=== PATIENT | female | born 1995 | race Caucasian/White ===

== ENCOUNTER 2018-06-25 12:31 | Day surgery (SDC) | payer OTHER ==
[2018-06-25 13:05] LABS: BASOPHILS % (AUTO) 0.3 %; EOSINOPHILS % (AUTO) 0.3 %; HGB - HEMOGLOBIN 15.8 g/dL (12.0-16.0); LYMPHOCYTES # (AUTO) 1.4 10^3/uL (1.5-3.5); LYMPHOCYTES % (AUTO) 11.7 %; MEAN CORPUSCULAR HEMOGLOBIN 31.1 pg (27.0-31.0); MEAN CORPUSCULAR HGB CONC 34.7 g/dL (32.0-36.0); MEAN CORPUSCULAR VOLUME 89.5 fL (81.0-99.0); MEAN PLATELET VOLUME 7.4 fL (7.9-10.8); MONOCYTES # (AUTO) 0.5 10^3/uL (0.0-1.0); MONOCYTES % (AUTO) 3.9 %; NEUTROPHILS # (AUTO) 10.4 10^3/uL (1.5-6.6); NEUTROPHILS % (AUTO) 83.8 %; PLT - PLATELET COUNT 326 10^3/uL (130-450); RED BLOOD COUNT 5.07 10^6/uL (4.20-5.40); RED CELL DISTRIBUTION WIDTH 12.1 % (12.0-15.0); WHITE BLOOD COUNT 12.4 x10^3/uL (4.8-10.8)
[2018-06-25 13:32] LABS: ALBUMIN 4.2 g/dL (3.2-5.5); ALBUMIN/GLOBULIN RATIO 1.2 (1.0-2.2); BILIRUBIN,TOTAL 0.7 mg/dL (0.2-1.0); CALCIUM 9.5 mg/dL (8.5-10.3); CREATININE 0.7 mg/dL (0.4-1.0); TOTAL PROTEIN 7.7 g/dL (6.7-8.2)
[2018-06-25 13:36] LABS: BILIRUBIN,URINE NEGATIVE (NEGATIVE); GLUCOSE, URINE (UA) NEGATIVE (NEGATIVE); KETONES,URINE (UA) NEGATIVE (NEGATIVE); LEUKOCYTE ESTERASE, URINE SMALL (NEGATIVE); NITRITE,URINE NEGATIVE (NEGATIVE); OCCULT BLOOD,URINE NEGATIVE (NEGATIVE); PROTEIN,URINE NEGATIVE (NEGATIVE); UROBILINOGEN,URINE 0.2 (NORMAL) E.U./dL (NORMAL)
[2018-06-25 13:39] LABS: CLARITY,URINE SL. CLOUDY (CLEAR); HCG UR QUAL NEGATIVE
[2018-06-25 13:45] LABS: BACTERIA,URINE Few /HPF (None Seen); RBC,URINE None Seen /HPF (0-5); SQUAMOUS EPITHELIAL CELL,UR MOD Squamous (<= Few)
--- NOTE | 2018-06-25 14:16 | ED Physician Documentation ---
PD HPI ABD PAIN - Stated complaint Stated Complaint: LOWER ABD PX - Chief complaint Chief Complaint: Abd Pain - History obtained from History obtained from: Patient - History of Present Illness Timing - onset: Today (Low abd pain since 729 today. Had 2 BMs which helped but still in pain. BMs were normal. Mirena IUD in place. Had mild nausea, but feels that was from GERD. No nausea now.) Review of Systems Ten Systems: 10 systems reviewed and negative Constitutional: reports: Reviewed and negative Cardiac: reports: Reviewed and negative Respiratory: reports: Reviewed and negative PD PAST MEDICAL HISTORY - Past Medical History Cardiovascular: None Respiratory: None Neuro: None Endocrine/Autoimmune: None GI: GERD SYSTEMS ARCHITECT: None : None HEENT: None Psych: None Musculoskeletal: None Derm: None - Past Surgical History Past Surgical History: No - Allergies Allergies/Adverse Reactions: Allergies Allergy/AdvReac Type Severity Reaction Status Date / Time No Known Drug Allergies Allergy Verified 06/25/18 12:42 - Social History Does the pt smoke?: No Smoking Status: Never smoker Does the pt drink ETOH?: Yes - Family History Family history: reports: Non contributory - Immunizations Immunizations are current?: Yes PD ED PE NORMAL - Vitals Vital signs reviewed: Yes - General General: Alert and oriented X 3, No acute distress - HEENT HEENT: PERRL, EOMI - Neck Neck: Supple, no meningeal sign, No bony TTP - Cardiac Cardiac: RRR, No murmur - Respiratory Respiratory: No respiratory distress, Clear bilaterally - Abdomen Abdomen: Normal bowel sounds, Soft, Other (Focal TTP RLQ) - Back Back: No CVA TTP, No spinal TTP - Derm Derm: Normal color, Warm and dry - Extremities Extremities: No edema, No calf tenderness / cord - Neuro Neuro: Alert and oriented X 3, Normal speech - Psych Psych: Normal mood, Normal affect Results - Vitals Vitals: Vital Signs - 24 hr 06/25/18 06/25/18 06/25/18 12:33 14:42 16:00 Temperature 36.3 C L 36.7 C 36.9 C Heart Rate 85 95 98 Respiratory 18 16 19 Rate Blood Pressure 125/77 128/85 H 110/77 O2 Saturation 98 99 99 Oxygen O2 Source Room air - Labs Labs: Laboratory Tests 06/25/18 06/25/18 06/25/18 12:59 12:59 13:22 WBC 12.4 H RBC 5.07 Hgb 15.8 Hct 45.4 MCV 89.5 MCH 31.1 H MCHC 34.7 RDW 12.1 Plt Count 326 MPV 7.4 L Neut # (Auto) 10.4 H Lymph # (Auto) 1.4 L [place] # (Auto) 0.5 Eos # (Auto) 0.0 Baso # (Auto) 0.0 Absolute Nucleated RBC 0.00 Nucleated RBC % 0.0 Sodium 136 Potassium 3.8 Chloride 100 L Carbon Dioxide 28 Anion Gap 8.0 BUN 13 Creatinine 0.7 Estimated GFR (MDRD) 102 Glucose 91 Calcium 9.5 Total Bilirubin 0.7 AST 25 ALT 39 Alkaline Phosphatase 60 Total Protein 7.7 Albumin 4.2 Globulin 3.5 Albumin/Globulin Ratio 1.2 Lipase 32 Urine Color YELLOW Urine Clarity SL. CLOUDY Urine pH 6.0 Ur Specific [place] 1.025 Urine Protein NEGATIVE Urine Glucose (UA) NEGATIVE Urine Ketones NEGATIVE Urine Occult Blood NEGATIVE Urine Nitrite NEGATIVE Urine Bilirubin NEGATIVE Urine Urobilinogen 0.2 (NORMAL) Ur Leukocyte Esterase SMALL H Urine RBC None Seen Urine WBC 6-10 H Ur Squamous Epith Cells MOD Squamous H Urine Bacteria Few Ur Microscopic Review INDICATED Urine Culture Comments NOT INDICATED Urine HCG, Qual 06/25/18 13:22 WBC RBC Hgb Hct MCV MCH MCHC RDW Plt Count MPV Neut # (Auto) Lymph # (Auto) [place] # (Auto) Eos # (Auto) Baso # (Auto) Absolute Nucleated RBC Nucleated RBC % Sodium Potassium Chloride Carbon Dioxide Anion Gap BUN Creatinine Estimated GFR (MDRD) Glucose Calcium Total Bilirubin AST ALT Alkaline Phosphatase Total Protein Albumin Globulin Albumin/Globulin Ratio Lipase Urine Color Urine Clarity Urine pH Ur Specific [place] 1.025 Urine Protein Urine Glucose (UA) Urine Ketones Urine Occult Blood Urine Nitrite Urine Bilirubin Urine Urobilinogen Ur Leukocyte Esterase Urine RBC Urine WBC Ur Squamous Epith Cells Urine Bacteria Ur Microscopic Review Urine Culture Comments Urine HCG, Qual NEGATIVE - Rads (name of study) CT A/P Radiology: EMP read contemporaneously (Acute uncomplicated appendicitis) PD MEDICAL DECISION MAKING - ED course ED course: 23-year-old woman with signs and symptoms concerning for appendicitis which is proven on CT, the surgeon, Dr. gomez came in expeditiously and will take her to the operating room. Departure - Departure Disposition: ED Transfer to SDS Clinical Impression: Appendicitis Qualifiers: Appendicitis type: acute appendicitis Acute appendicitis type: with localized peritonitis Appendicitis gangrene presence: without gangrene Appendicitis perforation presence: without perforation Appendicitis abscess presence: without abscess Qualified Code(s): K35.30 - Acute appendicitis with localized peritonitis, without perforation or gangrene Condition: Stable
[2018-06-25] MEDS ORDERED: IOVERSOL 320 100 ML VIAL IVP ONE ×2 (14:32→15:17)
--- NOTE | 2018-06-25 15:12 | CT Report ---
Reason: IV only, RLQ pain Procedure Date: 06/25/2018 Accession Number: [id number] / [id number] Procedure: CT - Abdomen/Pelvis W/ CPT Code: FULL RESULT: EXAM: CT ABDOMEN AND PELVIS EXAM DATE: 06/25/2018 02:51 PM. CLINICAL HISTORY: IV only, RLQ pain. COMPARISONS: None. TECHNIQUE: Routine helical CT imaging was performed through the abdomen and pelvis. IV contrast: UPTP444 90mL. Enteric contrast: No. Reconstructions: Coronal and sagittal. In accordance with CT protocol optimization, one or more of the following dose reduction techniques were utilized for this exam: automated exposure control, adjustment of mA and/or KV based on patient size, or use of iterative reconstructive technique. FINDINGS: Lung Bases: Unremarkable. Liver: Normal. No masses. Gallbladder/Bile Ducts: Unremarkable. Spleen: Normal. Pancreas: Normal. Adrenal Glands: Normal. Kidneys: Left renal hypodensities too small to characterize. No hydronephrosis or calculi. Peritoneal Cavity/Bowel: The appendix demonstrates periappendiceal fat stranding, mucosal hyperenhancement and maximum caliber of 0.9 cm consistent with uncomplicated early appendicitis. No free fluid, fluid collection or free air. No lymphadenopathy. No bowel obstruction. Pelvic Organs: Intrauterine device appropriately located. Vasculature: No aneurysms or other significant abnormality. Bones: No significant abnormality. Other: None. IMPRESSION: Early uncomplicated appendicitis. RAD[facility] CRITICAL RESULT: The findings were discussed with Dr. Bermudez on 06/25/2018 at 3:10 PM.
[2018-06-25] MEDS ORDERED: KETOROLAC 30 MG/ML VIAL IVP STA (15:14)
[2018-06-25] MEDS ORDERED: PIPERACILLIN/TAZOBACTAM 3.375 GM in SODIUM CHLORIDE 0.9% MINIBAG 100 ML IV STA (15:15)
[2018-06-25] MEDS ORDERED: BUPIVACAINE 0.5% PF 30 ML VIAL ONE (15:45)
[2018-06-25] MEDS ORDERED: ACETAMINOPHEN 1,000 MG/100 ML 100 ML IV STA (16:13)
--- NOTE | 2018-06-25 16:34 | ANESTHESIA ---
Pre-Anesthesia VS, & Labs - Diagnosis Appendicitis - Procedure Lap appendectomy Vital Signs: Temp Pulse Resp BP Pulse Ox 36.9 C 98 19 110/77 99 06/25/18 16:00 06/25/18 16:00 06/25/18 16:00 06/25/18 16:00 06/25/18 16:00 Height 5 ft 7 in Weight (kg) 86.183 kg Body Mass Index 29.7 - NPO >8 hours - Is Patient ?: No - Lab Results Current Lab Results: Laboratory Tests 06/25/18 12:59: Sodium 136, Potassium 3.8, Chloride 100 L, Carbon Dioxide 28, Anion Gap 8.0, BUN 13, Creatinine 0.7, Estimated GFR (MDRD) 102, Glucose 91, Calcium 9.5, Total Bilirubin 0.7, AST 25, ALT 39, Alkaline Phosphatase 60, Total Protein 7.7, Albumin 4.2, Globulin 3.5, Albumin/Globulin Ratio 1.2, Lipase 32 06/25/18 12:59: WBC 12.4 H, RBC 5.07, Hgb 15.8, Hct 45.4, MCV 89.5, MCH 31.1 H, MCHC 34.7, RDW 12.1, Plt Count 326, MPV 7.4 L, Neut # (Auto) 10.4 H, Lymph # (Auto) 1.4 L, [place] # (Auto) 0.5, Eos # (Auto) 0.0, Baso # (Auto) 0.0, Absolute Nucleated RBC 0.00, Nucleated RBC % 0.0 Lab results reviewed: Yes Fish Bones: 06/25/18 12:59 06/25/18 12:59 Home Medications and Allergies Allergies/Adverse Reactions: Allergies Allergy/AdvReac Type Severity Reaction Status Date / Time No Known Drug Allergies Allergy Verified 06/25/18 12:42 Anes History & Medical History - Anesthetic History Anesthesia Complications: reports: No previous complications Family history of Anesthesia Complications: Denies Family history of Malignant Hyperthermia: Denies - Medical History Cardiovascular: reports: None Pulmonary: reports: None Gastrointestinal: reports: GERD Urinary: reports: None Neuro: reports: None Musculoskeletal: reports: None Endocrine/Autoimmune: reports: None Blood Disorders: reports: None Skin: reports: None Smoking Status: Never smoker Psychosocial: reports: No issues indicated Exam General: Alert, Oriented x3 Dental: WNL Mouth Openin Fingerbreadth Neck Mobility: Normal Mallampati classification: I Thyromental Distance: greater than 6 cm Respiratory: Lungs clear Cardiovascular: Regular rate Neurological: Normal speech Mental/Cognitive Status: Alert/Oriented X3 Cognitive Status: Within normal limits Plan Anesthesia Type: General Consent for Procedure(s) Verified and Reviewed: Yes Code Status: Attempt Resuscitation ASA classification: 1-Healthy patient Is this case an emergency?: Yes
--- NOTE | 2018-06-25 16:49 | CONSULTATION NOTE ---
Referring Provider Name of Referring Provider:: Dr. Po Bermudez Consult Date: 06/25/18 Chief Complaint - Chief Complaint Chief Complaint: Right lower quadrant pain with radiographic studies, lab studies, exam and History of Present Illness - Admitted From Admitted From:: Emergency department to outpatient - History Obtained From Records Reviewed: Yes History obtained from: Patient and Dr. Po Bermudez Exam Limitations: None - History of Present Illness HPI Comment/Other: Dr. Po Bermudez asked that I evaluate this very pleasant 23-year-old female for the likelihood of acute appendicitis based on her history, exam, radiographic studies, and labs. The patient was evaluated in room 11 at [facility]'s emergency department. The patient states that the symptoms started at 730 this morning with right lower quadrant pain and have been unremitting. She has had nausea both this morning and last night but has not had vomiting. She states that she is hungry now. Motion worsens the pain. When her "hit the curb" it hurt more. She has not had this pain previously. History - Past Medical History Cardiovascular: reports: None Respiratory: reports: None Neuro: reports: None Endocrine/Autoimmune: reports: None GI: reports: GERD CAR PUSHER: reports: None : reports: None HEENT: reports: None Psych: reports: None Musculoskeletal: reports: None Derm: reports: None MRSA Hx?: No Meds/Allgy - Allergies Allergies/Adverse Reactions: Allergies Allergy/AdvReac Type Severity Reaction Status Date / Time No Known Drug Allergies Allergy Verified 06/25/18 12:42 Review of Systems - Constitutional Constitutional: denies: Fatigue, Fever, Chills, Malaise, Poor appetite - Eyes Eyes: denies: Pain - Ears, Nose & Throat Ears, Nose & Throat: denies: Ear pain - Cardiovascular Cariovascular: denies: Irregular heart rate, Palpitations, Chest pain - Respiratory Respiratory: denies: Cough, Sputum production - Gastrointestinal Gastrointestinal: reports: Abdominal pain, Nausea. denies: Rectal bleeding, Black stools, Bloody stools, Vomiting, Bile emesis, Noe blood emesis - Genitourinary Genitourinary: denies: Dysuria - Musculoskeletal Musculoskeletal: denies: Muscle pain, Back pain - Neurological Neurological: denies: General weakness, Focal weakness - Psychiatric Psychiatric: denies: Depression - Hematologic/Lymphatic Hematologic/Lymphatic: denies: Anemia Exam - Vital Signs Reviewed Vital Signs: Yes Vital Signs: Vital Signs x48h Temp Pulse Resp BP Pulse Ox 06/25/18 16:00 36.9 C 98 19 110/77 99 06/25/18 14:42 36.7 C 95 16 128/85 H 99 06/25/18 12:33 36.3 C L 85 18 125/77 98 - Physical Exam General Appearance: positive: No acute distress Eyes Bilateral: positive: No lid inflammation, Conjunctivae nml, No scleral icterus ENT: positive: No signs of dehydration Neck: positive: Trachea midline Respiratory: positive: Chest non-tender, No respiratory distress, Breath sounds nml Cardiovascular: positive: Regular rate & rhythm Abdomen: positive: No organomegaly, Tenderness (Right lower quadrant McBurney's point), Other (Previously pierced umbilicus, slightly decreased bowel sounds) Extremities: positive: Non-tender, Nml appearance Neurologic/Psychiatric: positive: Oriented x3, Motor nml, Sensation nml, Mood/affect nml Conclusion/Plan - Diagnosis Diagnosis: Acute appendicitis - Plan Plan: Laparoscopic appendectomy, possible open appendectomy. The indications, procedure, alternatives including no surgery, possible risks including infection (deep or superficial), bleeding requiring transfusion (with all of its risks), and were fully explained to the patient and all questions answered. I also explained the pathophysiology. I explained that following the surgery I did not want her lifting anything over 15 pounds for 6 weeks to allow for optimal healing and to decrease the likelihood that a hernia would occur. All questions were fully answered. Verbal and written consent was obtained. The patient, in preparation for surgery will be nothing by mouth, and receive 3.375 g of Zosyn with induction. I asked her to contact me with any surgical questions and her concerns and she stated that she would. I asked her to let me know if there is any way we can make her stay at [facility] more comfortable and she stated that she would let me know. The plan is to do this operation as an outpatient procedure and to discharge her home following the procedure. I have already handed her prescriptions for pain medications and stool softeners to be taken postoperatively. 45 minutes of [id number] time spent with the patient, the majority of which was spent in discussion, coordination of care, and completion of the requisite paperwork Kamila disclaimer: This document was created in part using voice recognition technology. Because of the inherent limitations of the system ([employer] Dragon Dict[employer] user manual states that the licensee understands that speech recognition is a statistical process and that recognition errors are inherent in the process), occasional same sounding word substitutions and grammatical errors do occur and persist despite proofreading. Please read this document for context. - Lab Results Lab results reviewed: Yes Fish Bones: 06/25/18 12:59 06/25/18 12:59 - Diagnostic Imaging Results Diagnostic Imaging Results: positive: Final report reviewed, Read independently
[2018-06-25] MEDS ORDERED: LACTATED RINGERS 1,000 ML IV ONE ×2 (17:11→18:10)
[2018-06-25] MEDS ORDERED: BUPIVACAINE 0.5% PF 30 ML VIAL SUBQ ONE (17:32)
[2018-06-25] MEDS ORDERED: fentaNYL 100 MCG/2 ML VIAL IVP ONE (17:47)
[2018-06-25] MEDS ORDERED: SUCCINYLCHOLINE 200 MG/10 ML VIAL IVP ONE (17:47)
[2018-06-25] MEDS ORDERED: GLYCOPYRROLATE 1 MG/5 ML VIAL IVP ONE (17:47)
[2018-06-25] MEDS ORDERED: ROCURONIUM 50 MG/5 ML VIAL IVP ONE (17:47)
[2018-06-25] MEDS ORDERED: ONDANSETRON 4 MG/2 ML VIAL IVP ONE (17:47)
[2018-06-25] MEDS ORDERED: PROPOFOL 200 MG/20 ML VIAL IVP ONE (17:47)
[2018-06-25] MEDS ORDERED: NEOSTIGMINE 1 MG/1 ML 10 ML MDV IVP ONE (17:47)
[2018-06-25] MEDS ORDERED: KETOROLAC 30 MG/ML VIAL IVP ONE (17:47)
[2018-06-25] MEDS ORDERED: DEXAMETHASONE 4 MG/ML VIAL IVP ONE (17:47)
[2018-06-25] MEDS ORDERED: MIDAZOLAM 2 MG/2 ML VIAL IVP ONE (17:47)
[2018-06-25] MEDS ORDERED: ONDANSETRON 4 MG/2 ML VIAL IVP PRN (18:41)
[2018-06-25] MEDS ORDERED: HYDROcod/ACETAM 5/325 MG TABLET PO PRN (18:41)
[2018-06-25] MEDS: HYDROmorphone 0.5 MG/0.5 ML SYRINGE IVP PRN ×2 (18:48→21:45)
--- NOTE | 2018-06-25 18:49 | OPERATIVE REPORT ---
Operative Report - General Procedure Date: 06/25/18 Planned Procedure: Laparoscopic appendectomy, possible open appendectomy Pre-Op Diagnosis: Acute appendicitis Procedure Performed: Laparoscopic appendectomy Post Op Diagnosis: Acute nonperforated appendicitis - Procedure Note Primary Surgeon: Nakul Marinelli MD Anesthesia Provider: Vinod Sharp CRNA Anesthesia Technique: General ET tube, Local (30 mL of half percent Marcaine) IV Fluids (mL): 1,200 Estimated Blood Loss (mL): 5 Drain/Tube Type: Other (None) Complications: None. - Other Other Information/Narrative: OPERATIVE DESCRIPTION/REPORT: After verbal and written informed consent was obtained detailing the risks of infection, bleeding requiring transfusion with its risks, and , and after I met with the patient confirming the surgery and the site of the surgery, the patient was brought to the operative suite and placed supine on the operating table. Great care was taken to avoid pressure points to prevent pressure necrosis or nerve injury. Monitoring devices were applied along with TEDs and pneumatic compressive stockings (to prevent DVT). The patient received preoperative antibiotics for surgical prophylaxis. Vinod Sharp CRNA sedated and anesthetized the patient for the entire procedure. The patient was prepped and draped in the usual sterile manner. With the patient draped my initials were clearly visible. A "time in" then confirmed that the patient was identified with 3 identifiers (name, date and medical record number), the history and physical was in the chart, the signed consent confirming the procedure was in the chart, the patient was in the correct position, the aforementioned prophylactic measures were in place or given, we had the correct personnel and equipment to complete the procedure and that anesthesia, surgery and nursing were given an opportunity to express any concerns. With the agreement of everyone in the room, we proceeded with the operation. A 2 cm incision elliptical umbilical incision was made excising her previous piercing site and dissection down to the fascia was completed in a blunt and sharp manner. The fascia was then cleared of subcutaneous tissue using a tonsil clamp and a small incision was made in the fascia gaining entry into the abdomen without incident. A 12 mm blunt tipped balloon tipped Asael port was placed into the abdomen and the balloon inflated to keep it in place. The pneumoperitoneum was then established using carbon dioxide insufflation to a steady state pressure of 15 mmHg. Two additional 5 mm ports were placed in the midline above and below the umbilicus. The patient was then rotated slightly to their left and slightly head down (Trendelenberg). A small adhesion was photographed and cut. The appendix was c learly identified and noted to be thickened and clearly consistent with acute appendicitis. The end of the appendix was grasped with a Prestige grasper and lifted anteriorly thus revealing the appendiceal mesentery. The mesentery was taken using sequential application of the Ligasure until the base of the appendix was visualized without any adherent tissue. I then attempted to staple and transect the base of the appendix with a linear laparoscopic Ethicon stapler. Unfortunately, the stapler failed. Some justin were placed where others were clearly not placed and the cutter did not work at all. The stapler was removed from the abdomen and is to be sent to the company for evaluation as to why it failed. I was concerned that the appendix was not adequately closed and as such I used the LigaSure to transect the appendix distal to the justin. The appendix was then placed into an Endopouch and removed from the abdomen. I then used a 0 PDS Endoloop to approximate the base of the appendix proximal to the justin. I examined the stump of the appendix carefully for any leak of bowel contents or any bleeding of which there was none. I used pulsatile lavage to ensure that there was no leakage or bleeding and again there was none. Photographs were taken. The right lower quadrant was copiously irrigated with 2 L of warm sterile saline. The patient was then rotated to lie flat. The fascia and skin were then injected with the 30 cc of % marcaine for pain control. The insufflation was released and the ports removed. With the removal of the umbilical port the Endopouch containing the appendix was also removed. The fascial defect was then approximated using a running 0-Vicryl suture. The skin incisions were approximated with 4-0 Monocryl in a subcuticular fashion. The surgical prep was removed, the skin was prepped with benzoin and steristrips were applied. A dressing was applied. At this point a time out was performed that confirmed that all the counts were correct, the procedure that was performed, the blood loss, the urine output, the IV fluids administered, and the patients condition. Having tolerated the procedure well, the patient was subsequently extubated and taken to recovery room in good and stable condition. Kamila disclaimer: This document was created in part using voice recognition technology. Because of the inherent limitations of the system ([employer] Dragon Dictate user manual states that the licensee understands that speech recognition is a statistical process and that recognition errors are inherent in the process), occasional same sounding word substitutions and grammatical errors do occur and persist despite proofreading. Please read this document for context.
[2018-06-25] MEDS ORDERED: ONDANSETRON 4 MG/2 ML VIAL ONE (19:08)
[2018-06-25] MEDS ORDERED: HYDROmorphone 1 MG/ML CARPUJECT ONE (19:16)
[2018-06-25 22:29] VITALS: BP 100/57
== END 2018-06-25 23:00 | disposition home or self-care (01) ==
LOC: ED 12:31 → SDS 16:29 → MS2 19:41 → SDS 23:00
PROVIDERS: ATTEND Surgery
PROC: 0DTJ4ZZ Resection of Appendix, Percutaneous Endoscopic Approach (ICD-10-PCS; principal; 2018-06-25 16:30)
DX: K35.80 Unspecified acute appendicitis (principal)
CPT/HCPCS: 36415; 44970; 74177; 80053; 81001; 81025; 83690; 85025; 96365; 96367; 96375; 99284; A9270; J0131; J0330; J1170; J7120; Q9967; 81003; 87086

== ENCOUNTER 2020-12-30 02:12 | Outpatient (CLI) | payer BC | END 2020-12-30 02:13 | disposition critical access hospital (66) | LOC: EMS 02:12 | DX: R45.851 Suicidal ideations (principal) | CPT/HCPCS: A0425; A0429 ==

== ENCOUNTER 2020-12-30 02:31 | Emergency (ER) | payer BC, OTHER ==
[2020-12-30 02:51] VITALS: BP 133/92
--- NOTE | 2020-12-30 03:12 | ED Physician Documentation ---
History of Present Illness - Stated complaint Stated Complaint: SI - Chief complaint Chief Complaint: MHE - History obtained from History obtained from: Patient - Additonal information Additional information: 25-year-old woman with history of depression and anxiety, no prior suicide attempts, presents with alcohol intoxication and abrasions to left forearm and neck after cutting herself with a kitchen knife. patient had 6 [place] ice teas tonight and states that alcohol amplifies her depression. She takes bupropion daily and has a psychiatrist through the she has been having telehealth appointments with. states that she was fantasizing about a viking when she cut herself but denies active SI now. denies HI/AVH. feels safe at home. is a good support structure but himself also deals with mental illness. Note that patient was hospitalized for substance (alcohol) treatment as a minor but has had no further IPP hospitalization since. Review of Systems Ten Systems: 10 systems reviewed and negative Constitutional: denies: Fever, Chills Psychiatric: reports: Depressed, Other (self injurious behavior) PD PAST MEDICAL HISTORY - Past Medical History Past Medical History: Yes Cardiovascular: None Respiratory: None Neuro: None Endocrine/Autoimmune: None GI: GERD MAJOR GIFTS OFFICER: None : None HEENT: None Psych: None Musculoskeletal: None Derm: None - Past Surgical History Past Surgical History: No - Present Medications Home Medications: Ambulatory Orders Medication Instructions Recorded Confirmed Bupropion HCl [Wellbutrin Xl] 300 mg PO DAILY 12/30/20 12/30/20 - Allergies Allergies/Adverse Reactions: Allergies Allergy/AdvReac Type Severity Reaction Status Date / Time No Known Drug Allergies Allergy Verified 12/30/20 02:39 - Social History Does the pt smoke?: No Smoking Status: Never smoker Does the pt drink ETOH?: Yes Does the pt have substance abuse?: No - Immunizations Immunizations are current?: Yes PD ED PE NORMAL - Vitals Vital signs reviewed: Yes - General General: Alert and oriented X 3, No acute distress, Well developed/nourished, Other (clinically intoxicated) - HEENT HEENT: Atraumatic, PERRL, EOMI, Other (superficial abrasions to BL neck and L forearm. old scar to R wrist) - Neck Neck: Supple, no meningeal sign - Cardiac Cardiac: RRR - Respiratory Respiratory: No respiratory distress, Clear bilaterally - Abdomen Abdomen: Non tender, Non distended - Derm Derm: Normal color, Warm and dry - Extremities Extremities: No deformity - Neuro Neuro: Alert and oriented X 3 - Psych Psych: Other (depressed mood, normal affect, clinically intoxicated) Results - Vitals Vitals: Oxygen O2 Source Room air - Labs Labs: Laboratory Tests 12/30/20 12/30/20 12/30/20 03:00 03:00 03:27 WBC 7.8 RBC 5.10 Hgb 15.2 Hct 45.0 MCV 88.2 MCH 29.8 MCHC 33.8 RDW 12.2 Plt Count 346 MPV 9.1 Neut # (Auto) 4.1 Lymph # (Auto) 3.2 Ellis # (Auto) 0.4 Eos # (Auto) 0.1 Baso # (Auto) 0.1 Absolute Nucleated RBC 0.00 Nucleated RBC % 0.0 Sodium Potassium Chloride Carbon Dioxide Anion Gap BUN Creatinine Estimated GFR (MDRD) Glucose Calcium Total Bilirubin AST ALT Alkaline Phosphatase Total Protein Albumin Globulin Albumin/Globulin Ratio Lipase TSH Urine Color YELLOW Urine Clarity CLEAR Urine pH 5.5 Ur Specific [place] 1.010 Urine Protein NEGATIVE Urine Glucose (UA) NEGATIVE Urine Ketones NEGATIVE Urine Occult Blood NEGATIVE Urine Nitrite NEGATIVE Urine Bilirubin NEGATIVE Urine Urobilinogen 0.2 (NORMAL) Ur Leukocyte Esterase SMALL H Urine RBC None Seen Urine WBC 0-3 Ur Squamous Epith Cells MOD Squamous H Urine Bacteria Rare Ur Microscopic Review INDICATED Urine Culture Comments NOT INDICATED Urine HCG, Qual NEGATIVE Nasal Adenovirus (PCR) NOT DETECTED Nasal B. parapertussis DNA (PCR) NOT DETECTED Nasal Coronavir 229E PCR NOT DETECTED Nasal Coronavir HKU1 PCR NOT DETECTED Nasal Coronavir NL63 PCR NOT DETECTED Nasal Coronavir OC43 PCR NOT DETECTED Nasal Enterovir/Rhinovir PCR NOT DETECTED Nasal Influenza B PCR NOT DETECTED Nasal Influenza A PCR NOT DETECTED Nasal Parainfluen 1 PCR NOT DETECTED Nasal Parainfluen 2 PCR NOT DETECTED Nasal Parainfluen 3 PCR NOT DETECTED Nasal Parainfluen 4 PCR NOT DETECTED Nasal RSV (PCR) NOT DETECTED Nasal B.pertussis DNA PCR NOT DETECTED Nasal C.pneumoniae (PCR) NOT DETECTED Leo Human Metapneumo PCR NOT DETECTED Nasal M.pneumoniae (PCR) NOT DETECTED Nasal SARS-CoV-2 (PCR) NOT DETECTED Salicylates Urine Opiates Screen NEGATIVE Ur Oxycodone Screen NEGATIVE Urine Methadone Screen NEGATIVE Ur Propoxyphene Screen NEGATIVE Acetaminophen Ur Barbiturates Screen NEGATIVE Ur Tricyclics Screen NEGATIVE Ur Phencyclidine Scrn NEGATIVE Ur Amphetamine Screen NEGATIVE U Methamphetamines Scrn NEGATIVE U Benzodiazepines Scrn NEGATIVE Urine Cocaine Screen NEGATIVE U Cannabinoids Screen NEGATIVE Ethyl Alcohol 12/30/20 12/30/20 03:27 03:27 WBC RBC Hgb Hct MCV MCH MCHC RDW Plt Count MPV Neut # (Auto) Lymph # (Auto) Ellis # (Auto) Eos # (Auto) Baso # (Auto) Absolute Nucleated RBC Nucleated RBC % Sodium 141 Potassium 3.9 Chloride 107 Carbon Dioxide 22 Anion Gap 12.0 BUN 10 Creatinine 0.6 Estimated GFR (MDRD) 120 Glucose 105 H Calcium 9.3 Total Bilirubin 0.5 AST 29 ALT 61 H Alkaline Phosphatase 92 Total Protein 8.2 Albumin 4.4 Globulin 3.8 Albumin/Globulin Ratio 1.2 Lipase 31 TSH 3.23 Urine Color Urine Clarity Urine pH Ur Specific [place] Urine Protein Urine Glucose (UA) Urine Ketones Urine Occult Blood Urine Nitrite Urine Bilirubin Urine Urobilinogen Ur Leukocyte Esterase Urine RBC Urine WBC Ur Squamous Epith Cells Urine Bacteria Ur Microscopic Review Urine Culture Comments Urine HCG, Qual Nasal Adenovirus (PCR) Nasal B. parapertussis DNA (PCR) Nasal Coronavir 229E PCR Nasal Coronavir HKU1 PCR Nasal Coronavir NL63 PCR Nasal Coronavir OC43 PCR Nasal Enterovir/Rhinovir PCR Nasal Influenza B PCR Nasal Influenza A PCR Nasal Parainfluen 1 PCR Nasal Parainfluen 2 PCR Nasal Parainfluen 3 PCR Nasal Parainfluen 4 PCR Nasal RSV (PCR) Nasal B.pertussis DNA PCR Nasal C.pneumoniae (PCR) Leo Human Metapneumo PCR Nasal M.pneumoniae (PCR) Nasal SARS-CoV-2 (PCR) Salicylates < 6.0 Urine Opiates Screen Ur Oxycodone Screen Urine Methadone Screen Ur Propoxyphene Screen Acetaminophen < 10 L Ur Barbiturates Screen Ur Tricyclics Screen Ur Phencyclidine Scrn Ur Amphetamine Screen U Methamphetamines Scrn U Benzodiazepines Scrn Urine Cocaine Screen U Cannabinoids Screen Ethyl Alcohol 119.6 PD MEDICAL DECISION MAKING - ED course ED course: 25-year-old woman presents with self-injurious behavior After a night of drinking. We will obtain screening lab work, have social work see her, and reevaluate when clinically sober. patient endorsed to incoming daytime MD. Departure - Departure Disposition: 01 Home, Self Care Clinical Impression: Depression, Alcoholic intoxication Condition: Good Instructions: ED Depression, ED Alcohol Intoxication Follow-Up: Your,doctor in 1 week [Other] Comments: Follow-up with your doctor for further care. Return if you worsen. Please follow-up with therapy as instructed by social work today. Continue your medications and avoid alcohol. Crisis Line and is available to talk to someone [email or web address] is also available to chat with someone online if you prefer. There are also many resources on this website and apps for your phone to help with your mental health You can also text the word START to [phone] to chat with someome via text. Discharge Date/Time: 12/30/20 09:41
[2020-12-30 03:14] LABS: MUDS CUTOFF CONCENTRATIONS CUTOFF CONC BELOW:
[2020-12-30 03:15] LABS: BILIRUBIN,URINE NEGATIVE (NEGATIVE); GLUCOSE, URINE (UA) NEGATIVE (NEGATIVE); KETONES,URINE (UA) NEGATIVE (NEGATIVE); LEUKOCYTE ESTERASE, URINE SMALL (NEGATIVE); NITRITE,URINE NEGATIVE (NEGATIVE); OCCULT BLOOD,URINE NEGATIVE (NEGATIVE); PH,URINE 5.5 PH (5.0-7.5); PROTEIN,URINE NEGATIVE (NEGATIVE); UROBILINOGEN,URINE 0.2 (NORMAL) E.U./dL (NORMAL)
[2020-12-30 03:18] LABS: CLARITY,URINE CLEAR (CLEAR); HCG UR QUAL NEGATIVE
[2020-12-30 03:24] LABS: BACTERIA,URINE Rare /HPF (None Seen); RBC,URINE None Seen /HPF (0-5); SQUAMOUS EPITHELIAL CELL,UR MOD Squamous (<= Few); WBC,URINE 0-3 /HPF (0-5)
[2020-12-30 03:26] LABS: AMPHETAMINE SCREEN,URINE NEGATIVE (NEGATIVE); BARBITURATE SCREEN,UR NEGATIVE (NEGATIVE); BENZODIAZEPINES SCREEN, URINE NEGATIVE (NEGATIVE); COCAINE SCREEN URINE NEGATIVE (NEGATIVE); METHADONE SCREEN, URINE NEGATIVE (NEGATIVE); METHAMPHETAMINES SCREEN, URINE NEGATIVE (NEGATIVE); OPIATE SCREEN, URINE NEGATIVE (NEGATIVE); OXYCODONE SCREEN, URINE NEGATIVE (NEGATIVE); PROPOXYPHENE SCREEN, URINE NEGATIVE (NEGATIVE); THC CANNABINOID SCREEN, URINE NEGATIVE (NEGATIVE); TRICYCLIC ANTIDEPRESSANT,URINE NEGATIVE (NEGATIVE)
[2020-12-30 03:33] LABS: BASOPHILS # (AUTO) 0.1 10^3/uL (0.0-0.1); BASOPHILS % (AUTO) 0.6 %; EOSINOPHILS # (AUTO) 0.1 10^3/uL (0.0-0.7); EOSINOPHILS % (AUTO) 1.1 %; HGB - HEMOGLOBIN 15.2 g/dL (12.0-16.0); LYMPHOCYTES # (AUTO) 3.2 10^3/uL (1.5-3.5); LYMPHOCYTES % (AUTO) 40.6 %; MEAN CORPUSCULAR HEMOGLOBIN 29.8 pg (27.0-31.0); MEAN CORPUSCULAR HGB CONC 33.8 g/dL (32.0-36.0); MEAN CORPUSCULAR VOLUME 88.2 fL (81.0-99.0); MEAN PLATELET VOLUME 9.1 fL (7.9-10.8); MONOCYTES # (AUTO) 0.4 10^3/uL (0.0-1.0); MONOCYTES % (AUTO) 4.7 %; NEUTROPHILS # (AUTO) 4.1 10^3/uL (1.5-6.6); NEUTROPHILS % (AUTO) 52.6 %; PLT - PLATELET COUNT 346 10^3/uL (130-450); RED CELL DISTRIBUTION WIDTH 12.2 % (12.0-15.0); WHITE BLOOD COUNT 7.8 x10^3/uL (4.8-10.8)
[2020-12-30 03:47] LABS: ACETAMINOPHEN < 10 ug/mL (10-30); ALBUMIN 4.4 g/dL (3.2-5.5); ALBUMIN/GLOBULIN RATIO 1.2 (1.0-2.2); ALKALINE PHOSPHATASE 92 IU/L (42-121); ALT ALANINE AMINOTRANSFERASE 61 IU/L (10-60); AST ASPARTATE AMINOTRANSFERASE 29 IU/L (10-42); BILIRUBIN,TOTAL 0.5 mg/dL (0.2-1.0); BUN - BLOOD UREA NITROGEN 10 mg/dL (6-20); CALCIUM 9.3 mg/dL (8.5-10.3); CARBON DIOXIDE - CO2 22 mmol/L (21-32); CHLORIDE 107 mmol/L (101-111); CREATININE 0.6 mg/dL (0.4-1.0); ETOH - ETHANOL 119.6 mg/dL; GFR - MDRD 120 (>89); GLUCOSE 105 mg/dL (70-100); LIPASE 31 U/L (22-51); POTASSIUM 3.9 mmol/L (3.5-5.0); SALICYLATE < 6.0 mg/dL; SODIUM 141 mmol/L (135-145); TOTAL PROTEIN 8.2 g/dL (6.7-8.2)
[2020-12-30 04:11] LABS: B. PARAPERTUSSIS- RESP PCR PAN NOT DETECTED; B. PERTUSSIS- RESP PCR PANEL NOT DETECTED; C. PNEUMONIAE- RESP PCR PANEL NOT DETECTED; CORONAVIRUS 229E-RESP PCR NOT DETECTED; CORONAVIRUS HKU1-RESP PCR NOT DETECTED; CORONAVIRUS NL63-RESP PCR NOT DETECTED; CORONAVIRUS OC43-RESP PCR NOT DETECTED; HUMAN METAPNEUMOVIRUS NOT DETECTED; INFLUENZA A- RESP PCR PANEL NOT DETECTED; INFLUENZA B - RESP PCR PANEL NOT DETECTED; M. PNEUMONIAE- RESP PCR PANEL NOT DETECTED; PARAINFLUENZA VIRUS 1 NOT DETECTED; PARAINFLUENZA VIRUS 2 NOT DETECTED; PARAINFLUENZA VIRUS 3 NOT DETECTED; PARAINFLUENZA VIRUS 4 NOT DETECTED; RHINOVIRUS/ENTEROVIRUS NOT DETECTED; RSV- RESP PCR PANEL NOT DETECTED; SARS-CoV-2 -RESP PCR PANEL NOT DETECTED
--- NOTE | 2020-12-30 09:28 | ED Physician Documentation ---
ED Addendum - Addendum Addendum: 12/30/20 09:[address] Manning for this patient. The patient sobered in the emergency department. Is no longer feeling suicidal. Contracts for safety. Social work consulted and evaluated the patient as well. The patient has significant outpatient resources available to her and a supportive . She does not feel like she needs to be admitted at this time. Recommend that she stay away from alcohol and that she follow-up with her doctor for further care. Patient counseled regarding signs and symptoms for which I believe and urgent re-evaluation would be necessary. Patient with good understanding of and agreement to plan and is comfortable going home at this time This document was made in part using voice recognition software. While efforts are made to proofread this document, sound alike and grammatical errors may occur. Departure - Departure Disposition: 01 Home, Self Care Clinical Impression: Depression Qualifiers: Depression Type: unspecified Qualified Code(s): F32.9 - Major depressive disorder, single episode, unspecified Alcoholic intoxication Qualifiers: Complication of substance-induced condition: uncomplicated Qualified Code(s): F10.920 - Alcohol use, unspecified with intoxication, uncomplicated Condition: Good Instructions: ED Depression, ED Alcohol Intoxication Follow-Up: Your,doctor in 1 week [Other] Comments: Follow-up with your doctor for further care. Return if you worsen. Please follow-up with therapy as instructed by social work today. Continue your medications and avoid alcohol. Crisis Line and is available to talk to someone [email or web address] is also available to chat with someone online if you prefer. There are also many resources on this website and apps for your phone to help with your mental health You can also text the word START to [phone] to chat with someome via text.
== END 2020-12-30 09:41 | disposition home or self-care (01) ==
LOC: EDUNIT# → ED 02:31
DX: S51.812A Laceration without foreign body of left forearm, initial encounter (principal); S11.91XA Laceration without foreign body of unspecified part of neck, initial encounter; X78.1XXA Intentional self-harm by knife, initial encounter; F10.920 Alcohol use, unspecified with intoxication, uncomplicated; F32.9 Major depressive disorder, single episode, unspecified; Z20.822 Contact with and (suspected) exposure to COVID-19
CPT/HCPCS: 0202U; 36415; 80053; 80306; 80307; 80320; 80329; 81001; 81025; 83690; 84443; 85025; 99283; 81003; 87086

== ENCOUNTER 2021-08-15 08:00 | Outpatient (CLI) | payer BC ==
[2021-08-15 22:01] LABS: BACTERIAL VAGINOSIS DNA NEGATIVE (NEGATIVE)
[2021-08-15 22:02] LABS: CANDIDA GLABRATA DNA NEGATIVE (NEGATIVE); CANDIDA GROUP DNA NEGATIVE (NEGATIVE); CANDIDA KRUSEI DNA NEGATIVE (NEGATIVE); TRICHOMONAS VAGINALIS DNA NEGATIVE (NEGATIVE)
[2021-08-15 22:49] LABS: NEISSERIA GONORRHOEAE DNA NEGATIVE (NEGATIVE); TRICHOMONAS VAGINALIS DNA NEGATIVE (NEGATIVE)
[2021-08-15 22:50] LABS: CHLAMYDIA TRACHOMATIS DNA POSITIVE (NEGATIVE)
== END 2021-08-15 23:59 | disposition home or self-care (01) ==
LOC: LAB.N 08:00
PROVIDERS: ATTEND Physician Assistant Medical
DX: Z30.431 Encounter for routine checking of intrauterine contraceptive device (principal)
CPT/HCPCS: 87491; 87591; 87661; 87801

== ENCOUNTER 2021-08-15 11:49 | Outpatient (CLI) | payer BC ==
--- NOTE | 2021-08-15 16:40 | XRAY Report ---
PROCEDURE: Pelvis 1 View INDICATIONS: IUD CHECK TECHNIQUE: Single view of the pelvis was obtained COMPARISON: None. FINDINGS: An IUD is projected over the mid pelvis. IMPRESSION: IUD projected over the mid pelvis as expected. Reviewed by: Krys Prado MD on 08/15/2021 4:39 PM PDT Approved by: Krys Prado MD on 08/15/2021 4:39 PM PDT Station ID: [id number]
== END 2021-08-15 23:59 | disposition home or self-care (01) ==
LOC: DI.N 11:49
PROVIDERS: ATTEND Physician Assistant Medical
DX: Z30.431 Encounter for routine checking of intrauterine contraceptive device (principal)
CPT/HCPCS: 87491; 87591; 87661; 87801

== ENCOUNTER 2022-12-14 10:36 | Outpatient (CLI) | payer MEDICAID ==
[2022-12-14 11:07] LABS: BASOPHILS % (AUTO) 0.4 %; EOSINOPHILS # (AUTO) 0.1 10^3/uL (0.0-0.7); HCT - HEMATOCRIT 40.9 % (37.0-47.0); LYMPHOCYTES # (AUTO) 2.5 10^3/uL (1.5-3.5); LYMPHOCYTES % (AUTO) 30.9 %; MEAN CORPUSCULAR HEMOGLOBIN 29.2 pg (27.0-31.0); MEAN CORPUSCULAR HGB CONC 34.2 g/dL (32.0-36.0); MEAN CORPUSCULAR VOLUME 85.4 fL (81.0-99.0); MEAN PLATELET VOLUME 9.4 fL (7.9-10.8); MONOCYTES # (AUTO) 0.4 10^3/uL (0.0-1.0); MONOCYTES % (AUTO) 4.9 %; NEUTROPHILS % (AUTO) 62.3 %; PLT - PLATELET COUNT 330 10^3/uL (130-450); RED BLOOD COUNT 4.79 10^6/uL (4.20-5.40); RED CELL DISTRIBUTION WIDTH 12.1 % (12.0-15.0)
[2022-12-14 11:13] LABS: ESTIMATED AVERAGE GLUCOSE 103 mg/dL (70-100); HEMOGLOBIN A1c% 5.2 % (4.27-6.07)
[2022-12-14 11:40] LABS: THYROID STIMULATING HORMONE 3.62 uIU/mL (0.34-5.60)
[2022-12-14 11:42] LABS: FREE T4 (FREE THYROXINE) 0.71 ng/dL (0.58-1.64)
[2022-12-15 03:11] LABS: RPR Non Reactive (Non Reactive)
[2022-12-15 04:09] LABS: HBsAG SCREEN Negative (Negative); HCV AB Non Reactive (Non Reactive); HIV SCREEN 4TH GENERATION Non Reactive (Non Reactive)
[2022-12-15 08:09] LABS: VARICELLA-ZOSTER AB IGG 2020 index (Immune >165)
== END 2022-12-14 10:37 | disposition home or self-care (01) ==
LOC: LAB 10:36
PROVIDERS: ATTEND Nurse Practitioner Obstetrics & Gynecology
DX: O99.210 Obesity complicating pregnancy, unspecified trimester (principal); Z83.49 Family history of other endocrine, nutritional and metabolic diseases; Z36.89 Encounter for other specified antenatal screening
CPT/HCPCS: 36415; 83036; 84439; 84443; 85025; 86592; 86762; 86787; 86803; 86850; 86900; 86901; 87340; 87389

== ENCOUNTER 2023-04-27 11:57 | Outpatient (CLI) | payer MEDICAID ==
[2023-04-27 12:22] VITALS: BP 126/77
--- NOTE | 2023-04-27 13:09 | PROVIDER PROGRESS NOTE ---
- HPI Chief Complaint: Decreased movement Current : Current EDU 06/17/23 Gestation 32 Weeks and 5 Days 2 Para 0 Vital Signs Temperature 98.2 F 04/27/23 12:11 Heart Rate 90 04/27/23 12:11 Respiratory Rate 18 04/27/23 12:11 Blood Pressure 126/77 04/27/23 12:11 Temperature 98.2 F 04/27/23 12:11 Heart Rate 90 04/27/23 12:11 Respiratory Rate 18 04/27/23 12:11 Blood Pressure 126/77 04/27/23 12:11 O2 Saturation If not protocol: Oxygen Flow, liters/minute - Procedures OB Procedure Performed: NST Diagnosis/Indication for NST: Decreased movement NST Procedure: NST Procedure Start Date 04/27/23 Start Time 12:04 Stop Time 12:57 Vibroacoustic Stimulation Used No Patient States Movement No Service Date of procedure: 04/27/23 (Read 04/27/23) - Plan Plan: Patient is a 28-year-old G1, P0 at 33 weeks gestation presented for decreased movement. She has not felt baby move this morning. She is very anxious at baseline and was recently recommended to go up on her sertraline, but has not. She says she has frequent nightmares of baby dying and is very anxious about this. She usually has movement, but sometimes is hard to tell. She knows she has an anterior placenta and knows that this can make it more difficult. Physical Exam Constitutional: alert, no acute distress, well hydrated, well developed, well nourished, appropriate dress. Cardiovascular: Regular rate and rhythm. Respiratory: no respiratory distress. Abdomen: nondistended, nontender, no guarding. Psych: affect and mood appropriate, normal interaction, good eye contact. FHT: 150 beats per baseline, moderate variability, accelerations present, no decelerations. Reactive NST. Stickney: Quiescent Decreased movement -Reactive NST, although did have a period of sleep cycle in the middle. -BPP 01/08 -Discussed kick counts. Follow-up with [facility] 33 weeks gestation -Encouraged 1 hour GTT.
== END 2023-04-27 13:18 | disposition home or self-care (01) ==
LOC: WFO 11:57 → FBP 12:03 → WFO 13:18
PROVIDERS: ATTEND Obstetrics & Gynecology
DX: O36.8130 Decreased fetal movements, third trimester, not applicable or unspecified (principal); O99.343 Other mental disorders complicating pregnancy, third trimester; F41.9 Anxiety disorder, unspecified; Z3A.33 33 weeks gestation of pregnancy; Z79.899 Other long term (current) drug therapy
CPT/HCPCS: 59025; 99214; 99215

== ENCOUNTER 2023-05-05 20:36 | Outpatient (CLI) | payer MEDICAID ==
[2023-05-05 21:36] LABS: RUPTURE OF MEMBRANES PLUS POSITIVE (NEGATIVE)
[2023-05-05] MEDS ORDERED: BETAMETHASONE 30 MG/5 ML VIAL IM ONE (21:53)
--- NOTE | 2023-05-05 22:00 | PROVIDER PROGRESS NOTE ---
- HPI Chief Complaint: Leakage of vaginal fluid Current : Vital Signs Temperature 36.4 C L 05/05/23 20:45 Heart Rate 94 05/05/23 20:45 Respiratory Rate 24 05/05/23 20:45 Blood Pressure 128/80 05/05/23 20:45 Temperature 36.4 C L 05/05/23 20:45 Heart Rate 94 05/05/23 20:45 Respiratory Rate 24 05/05/23 20:45 Blood Pressure 128/80 05/05/23 20:45 O2 Saturation If not protocol: Oxygen Flow, liters/minute - Procedures OB Procedure Performed: NST Diagnosis/Indication for NST: labor NST Procedure: NST Procedure Start Time 12:04 Stop Time 12:57 - Plan Plan: Rita Heath is a 28yo @ 33.6wks gestation by 6.3wks ultrasound who presented to [facility] with c/o vaginal leakage of fluid. Upon arrival she was noted to have saturated pad with clear fluid. A ROM+ was collected and returned po sitive. Her cervix upon arrival was noted to be 4-5/100/-1 and vertex. Secondary to gestation the exploration geologist physician was immediately notified and care transferred to Dr. Morales with intention to initiate a transfer of care to facility with NICU. See physician documentation for further plan of care. Immunization history: Has received COVID vaccine: #2 12/2020. Had COVID-19 04/03/2023. Has not received influenza vaccine (Mar - September). Tdap vaccine 04/16/2023. Prior history of a blood transfusion? No. Will accept blood transfusion in medical emergency. mailing jogger History: Term NSVB x 0. SAB x0. TAB x1. Last pap unsure. Denies history of gonorrhea, genital herpes, oral herpes or any other STI. Hx chlamydia which was treated. Sexual partner does NOT have HSV (oral or genital). Medical Hx: Anxiety and depression, ADHD Surgical Hx: Appendectomy 2019 Social Hx: Sexual behavior: Monogamous with male partner Stopped drinking alcohol due to . Denies current use of tobacco, marijuana or other recreational drugs. Reports that she is safe in current relationship. Family Hx: Denies family history of congenital anomalies, Cystic Fibrosis or chromosomal abnormalities. Allergies: NKDAMedications: Sertraline 100mg PO once daily; Adderal 40mg once daily; ASA 81mg once daily; vitamin.
--- NOTE | 2023-05-05 22:03 | HISTORY & PHYSICAL EXAMINATION ---
Admit History - Visit Reason Visit Reason: Membranes rupture - : 2 Parity: 0 : 1 Care: positive: [facility] Risk/History: positive: Other (obesity, adhd, anxiety) Complications This : positive: None Smoking Status: Never smoker - Mother's Labs GBS: positive: Other (collected 05 may 2023) - Other Maternal History Other Maternal History: ANL: B+/abneg/RI/RPRNR/HepBneg/HIVneg/GCCTnegneg/GBS collected 05 May 2023 ANC c/b: 1. ADHD - on adderall 40mg, saw prov MFM and had level II U/S that showed poor visualization of cardiac structures, with normal follow up. 2. Anxiety / Depression - on Sertraline - 40mg - mood has been well 3. Obesity, prime - on ASA 81mg QD 4. treated for trich, GEOVANNA negative. PMH: ADHD / Anxiety / Depression PSH: appendectomy POB: PGYN: no h/o abnormal pap no h/o STDs no h/o problems with ovaries or uterus conceived without difficulty. Meds: Adderall 40mg QD, Sertraline 100mg PO QD, ASA 81 mg QD, PNV All: NKDA Soc: neg x3, does "love" soda, lives with FOB Marlo. Safe relationship, safe home. Fam: unremarkable - no congenital anomalies, cystic fibrosis, chromosomal abnormalities. VSS NAD Conjunctiva pink, pale sclera +S1, S2, CTAB, no increased work of breathing Abd soft, NT, ND, visibly gravid at EFM: 140mod salma + A cells occasional variable d cells, overall reassuring Merriam: acontractile Cx: 4cm grossly ruptured clear fluid ROM+ positive Ext: neg CCE - HPI Vital Signs Temperature 97.5 F L 05/05/23 20:45 Heart Rate 94 05/05/23 20:45 Respiratory Rate 24 05/05/23 20:45 Blood Pressure 128/80 05/05/23 20:45 Temperature 97.5 F L 05/05/23 20:45 Heart Rate 94 05/05/23 20:45 Respiratory Rate 24 05/05/23 20:45 Blood Pressure 128/80 05/05/23 20:45 O2 Saturation If not protocol: Oxygen Flow, liters/minute - NST Procedure NST Procedure Start Time 12:04 Stop Time 12:57 Meds/Allgy - Home Medications Home Medications: Ambulatory Orders Medication Instructions Recorded Confirmed buPROPion HCL [Wellbutrin Xl] 300 mg PO DAILY 12/30/20 12/30/20 - Allergies Allergies/Adverse Reactions: Allergies Allergy/AdvReac Type Severity Reaction Status Date / Time No Known Drug Allergies Allergy Verified 12/30/20 02:39 Physical - Abdominal Exam Vital Signs: Temp Pulse Resp BP Pulse Ox O2 Flow Rate 97.5 F L 94 24 128/80 05/05/23 20:45 05/05/23 20:45 05/05/23 20:45 05/05/23 20:45 Plan for Labor - Plan For Labor I expect patient to be DC'd or transferred within 96 hours.: Yes Plan for Labor: 28yo @ 33&6 with PPROM not in active labor PPROM - BMZ given - amp & azithro started (we do not have any erythro) - commence transfer process - [facility] accepting - helicopter currently on site - accepted helicopter transport - plan to leave in appx 8 mins - will re-check cervix prior to departure. ADHD / Anxiety / Depression - FOB will bring her home meds - well connected through primary for post depression precautions precautions reviewed GBS unknown - swab sent - through [facility]
[2023-05-05] MEDS ORDERED: AMPICILLIN 2 GM VIAL IV ONE (22:11)
[2023-05-05] MEDS ORDERED: SODIUM CHLORIDE FLUSH 0.9% 10 ML SYRINGE ONE (22:12)
[2023-05-05] MEDS ORDERED: SODIUM CHLORIDE 0.9% MINIBAG 100 ML IV ONE (22:12)
[2023-05-05 22:14] LABS: BASOPHILS # (AUTO) 0.1 10^3/uL (0.0-0.1); BASOPHILS % (AUTO) 0.4 %; EOSINOPHILS # (AUTO) 0.1 10^3/uL (0.0-0.7); EOSINOPHILS % (AUTO) 0.8 %; HCT - HEMATOCRIT 40.3 % (37.0-47.0); HGB - HEMOGLOBIN 13.1 g/dL (12.0-16.0); LYMPHOCYTES # (AUTO) 3.4 10^3/uL (1.5-3.5); MEAN CORPUSCULAR HEMOGLOBIN 27.9 pg (27.0-31.0); MEAN CORPUSCULAR HGB CONC 32.5 g/dL (32.0-36.0); MEAN CORPUSCULAR VOLUME 85.9 fL (81.0-99.0); MEAN PLATELET VOLUME 10.2 fL (7.9-10.8); MONOCYTES # (AUTO) 0.7 10^3/uL (0.0-1.0); MONOCYTES % (AUTO) 5.8 %; NEUTROPHILS # (AUTO) 7.7 10^3/uL (1.5-6.6); NEUTROPHILS % (AUTO) 64.2 %; PLT - PLATELET COUNT 404 10^3/uL (130-450); RED BLOOD COUNT 4.69 10^6/uL (4.20-5.40); RED CELL DISTRIBUTION WIDTH 13.2 % (12.0-15.0)
[2023-05-05] MEDS ORDERED: TERBUTALINE 1 MG/ML VIAL SUBQ ONE (22:34)
[2023-05-05] MEDS ORDERED: fentaNYL 100 MCG/2 ML VIAL IVP ONE (22:35)
[2023-05-05] MEDS ORDERED: AMPICILLIN 2 GM in SODIUM CHLORIDE 0.9% MINIBAG 100 ML IV ONE (23:00)
[2023-05-05] MEDS ORDERED: AZITHROMYCIN INJ 1,000 MG in SODIUM CHLORIDE 0.9% 250 ML IV ONE (23:00)
[2023-05-05] MEDS ORDERED: LACTATED RINGERS 1,000 ML IV SCH (23:00)
[2023-05-06 01:53] VITALS: BP 137/80
[2023-05-06 03:13] VITALS: O2SAT 99
== END 2023-05-05 23:05 | disposition short-term general hospital (02) ==
LOC: WFO 20:36 → FBP 20:38 → WFO 23:05
PROVIDERS: ATTEND Nurse Practitioner Obstetrics & Gynecology
DX: O42.913 Preterm premature rupture of membranes, unspecified as to length of time between rupture and onset of labor, third trimester (principal); Z3A.33 33 weeks gestation of pregnancy; O99.343 Other mental disorders complicating pregnancy, third trimester; F41.9 Anxiety disorder, unspecified; F90.9 Attention-deficit hyperactivity disorder, unspecified type; F32.A Depression, unspecified; O99.213 Obesity complicating pregnancy, third trimester
CPT/HCPCS: 84112; 85025; 86850; 86900; 86901; 87797; 96372; 96374; 96375; 99215; J7120